=== PATIENT | female | born 1935 | race Caucasian/White ===

== ENCOUNTER 2017-12-09 17:50 | Outpatient (CLI) | payer MEDICARE ==
[2017-12-09 22:12] LABS: Bacteria/HPF 4+ HPF (None Seen); Bilirubin Negative (Negative); Blood, Urine Trace (Negative); Clarity Cloudy (Clear); Glucose, Urine (Dipstick) Negative (Negative); Leukocyte Moderate (Negative); Nitrite Negative (Negative); Protein, Urine (Dipstick) 100 mg/dL (Neg-Trace)
== END 2017-12-09 17:51 | disposition home or self-care (01) ==
LOC: MADLAB 17:50
PROVIDERS: ATTEND Family Medicine
DX: R53.1 Weakness (principal)
CPT/HCPCS: 81001; 87086

== ENCOUNTER 2018-01-19 13:24 | Emergency (ER) | payer MEDICARE, OTHER ==
[~2018-01-19 13:24] MED LIST: Sodium Chloride 0.9% 100 ML BAG ONE
[2018-01-19 14:09] LABS: Bilirubin Negative (Negative); Blood, Urine Trace (Negative); Clarity Slightly Cloudy (Clear); Glucose, Urine (Dipstick) Negative (Negative); Leukocyte Small (Negative); Nitrite Negative (Negative); Protein, Urine (Dipstick) 30 mg/dL (Neg-Trace); Specific Gravity, Urine 1.015 (1.005-1.030); pH, Urine 8.5 (5.0-9.0)
[2018-01-19 14:20] LABS: RBC/HPF 0-3 HPF (0-3)
[2018-01-19 14:21] LABS: Bacteria/HPF 4+ HPF (None Seen)
--- NOTE | 2018-01-19 14:43 | RAD ---
PORTABLE CHEST: Date: 01/19/18 PROVIDED CLINICAL HISTORY: Altered mental status. FINDINGS: No comparisons. Evaluation is limited by patient body habitus. Cardiac silhouette is prominent, likely at least parti ally on the basis of portable technique. There is density at the right upper lung zone medially that may reflect mediastinal mass or ectatic vasculature. The lungs appear clear. There is no pleural flui d or pneumothorax apparent. IMPRESSION: Abnormal appearance to the upper mediastinum right of midline which may reflect ectatic vasculature o r mass. Correlation with PA and lateral views of the chest recommended. POS: OFF
--- NOTE | 2018-01-19 14:50 | CT ---
CT BRAIN WITHOUT CONTRAST: HISTORY: Altered mental status. FINDINGS: The exam is compromised by motion artifact. There are changes of cortical atrophy and chronic small-vessel ischemic disease. No definite evidenc e of acute infarct, hemorrhage, midline shift, or abnormal extraaxial fluid collection seen. The syeda tricular size is appropriate and the basilar cisterns patent. The bony calvarium is intact. There i s mucosal disease in the paranasal sinuses. IMPRESSION: No definite CT evidence of acute intracranial process. POS: EPIH
[2018-01-19 14:53] LABS: Band 3 % (5-11); Eosinophils 3 % (0-10); Hemoglobin 10.8 g/dL (12.0-16.0); Large Platelets SLIGHT; Lymphocytes 30 % (21-51); MDiff Complete? YES; Mean Corpuscular HGB CONC 33.1 g/dL (32.0-36.0); Mean Corpuscular Hemoglobin 29.8 pg (27.0-31.0); Mean Corpuscular Volume 89.8 fl (81.0-99.0); Mean Platelet Volume 9.2 fL (7.4-10.4); Monocytes 6 % (0-10); Neutrophil 58 % (42-75); PLT Morphology Comment Appears Decreased; Platelet Count 121 thou/uL (130-400); RBC Distribution Width 13.1 % (11.5-14.5); Red Blood Cell (RBC) Count 3.64 mill/uL (4.20-5.40); White Blood Cell (WBC) Count 6.7 thou/uL (4.8-10.8)
[2018-01-19 14:59] LABS: ALT (SGPT) 10 U/L (8-55); AST (SGOT) 14 U/L (5-34); Albumin 3.7 g/dL (3.4-4.8); Alkaline Phosphatase 97 U/L (40-150); Anion Gap 16 mmol/L (10-20); BUN (Urea Nitrogen) 32 mg/dL (9.8-20.1); Bilirubin, Total 0.4 mg/dL (0.2-1.2); CK (CPK) 41 U/L (29-168); Calc. Creatinine Clearance 0 mL/min (70-130); Calcium 9.3 mg/dL (7.8-10.44); Carbon Dioxide 24 mmol/L (23-31); Chloride 103 mmol/L (98-107); Estimated GFR-MDRD 65; Globulin 3.6 g/dL (2.4-3.5); Glucose 105 mg/dL (83-110); Potassium 4.1 mmol/L (3.5-5.1); Protein, Total 7.3 g/dL (6.0-8.3); Sodium 139 mmol/L (136-145)
[2018-01-19 15:01] LABS: CKMB 1.1 ng/mL (0-6.6); Troponin I Less than 0.010 ng/mL (< 0.028)
[2018-01-19] MEDS ORDERED: cefTRIAXone\\ROCEPHIN 2 GM VIAL ONE (15:04)
[2018-01-19] MEDS ORDERED: ceFOXitin 1 GM VIAL ONE (15:11)
[2018-01-19] MEDS ORDERED: cefTRIAXone\\ROCEPHIN 1 GM VIAL ONE (15:13)
--- NOTE | 2018-01-19 16:29 | CT ---
CT OF THE THORAX WITH IV CONTRAST: 01/19/18 INDICATION: History of abnormal chest radiograph. COMPARISON: Chest radiograph dated 01/19/18. FINDINGS: There is mild cardiomegaly. There are prominent mitral annular calcifications. There are coronary art nathlay and thoracic aortic calcifications present. No pathologically enlarged lymph nodes are evident. No focal consolidation or pleural effusion is not ed. No suspicious pulmonary nodules identified. There is a moderate sided hiatal hernia. Gallbladder is surgically absent. Small cyst seen within the spleen. There is bilateral renal cortical thinning. There is scattered degenerative and osteoarthritic change. No definite acute osseous abnormality is e vident. IMPRESSION: 1. No acute cardiopulmonary abnormality. 2. Mild cardiomegaly without evidence of cardiac decompensation. 3. Moderate sized hiatal hernia. 4. Other chronic findings as above. POS: BABAK
== END 2018-01-19 18:30 | disposition home or self-care (01) ==
LOC: MADERS 13:24
DX: N39.0 Urinary tract infection, site not specified (principal); R41.82 Altered mental status, unspecified; F32.9 Major depressive disorder, single episode, unspecified; I10 Essential (primary) hypertension; E11.9 Type 2 diabetes mellitus without complications; G30.9 Alzheimer's disease, unspecified; F02.80 Dementia in other diseases classified elsewhere, unspecified severity, without behavioral disturbance, psychotic disturbance, mood disturbance, and anxiety; Z79.899 Other long term (current) drug therapy
CPT/HCPCS: 36415; 51701; 70450; 71045; 71260; 80053; 81003; 81015; 82550; 82553; 84484; 85025; 87077; 87086; 87186; 93005; 94760; 96374; A4353; J0694; J0696; J7050

== ENCOUNTER 2019-12-01 10:53 | Inpatient (IN) | payer MEDICARE, MEDICAID ==
[~2019-12-01 10:53] MED LIST changes: +Sodium Chloride 0.9% 1,000 ML BAG ONE; -Sodium Chloride 0.9% 100 ML BAG ONE
--- NOTE | 2019-12-01 11:46 | RAD ---
PORTABLE CHEST: HISTORY: Syncope. COMPARISON: 01/19/2018 study. FINDINGS: Heart size is borderline. Aorta is tortuous. The lungs are clear of infiltrates. Marked arthritic changes of both shoulders with changes compatible with chronic rotator cuff tears. IMPRESSION: No acute changes. POS: VIRA
[2019-12-01 12:01] LABS: Hemoglobin 10.6 g/dL (12.0-16.0); Large Platelets SLIGHT; Lymphocytes 12 % (21-51); MDiff Complete? YES; Macrocytosis SLIGHT = 6-15 cells (100X) (0-5/hpf); Mean Corpuscular HGB CONC 30.5 g/dL (32.0-36.0); Mean Corpuscular Hemoglobin 30.5 pg (27.0-31.0); Mean Platelet Volume 12.1 fL (7.4-10.4); Metamyelocyte 1 % (0-0); Monocytes 2 % (0-10); Neutrophil 68 % (42-75); Platelet Count 61 thou/uL (130-400); Platelet Morphology Comment Appears Decreased; RBC Distribution Width 12.5 % (11.5-14.5); Reactive Lymphocytes 17 % (0-10); Red Blood Cell (RBC) Count 3.46 mill/uL (4.20-5.40); White Blood Cell (WBC) Count 5.8 thou/uL (4.8-10.8)
[2019-12-01 12:06] LABS: ALT (SGPT) 14 U/L (8-55); AST (SGOT) 15 U/L (5-34); Alkaline Phosphatase 57 U/L (40-110); Anion Gap 13 mmol/L (10-20); BUN (Urea Nitrogen) 53 mg/dL (9.8-20.1); Bilirubin, Total 0.2 mg/dL (0.2-1.2); CK (CPK) 49 U/L (29-168); Calc. Creatinine Clearance 0 mL/min (70-130); Calcium 7.8 mg/dL (7.8-10.44); Carbon Dioxide 18 mmol/L (23-31); Chloride 135 mmol/L (98-107); Estimated GFR-MDRD 40; Globulin 3.1 g/dL (2.4-3.5); Glucose 227 mg/dL (83-110); Potassium 3.1 mmol/L (3.5-5.1); Protein, Total 6.1 g/dL (6.0-8.3); Sodium 163 mmol/L (136-145)
[2019-12-01 12:11] LABS: Bilirubin Negative (Negative); Blood, Urine Negative (Negative); Glucose, Urine (Dipstick) Negative (Negative); Leukocyte Negative (Negative); Nitrite Negative (Negative); Protein, Urine (Dipstick) 30 mg/dL (Neg-Trace); Urobilinogen 0.2 mg/dL (Less than 2)
[2019-12-01 12:12] LABS: Clarity Hazy (Clear)
[2019-12-01 12:20] LABS: Bacteria/HPF Rare-Few HPF (None Seen); RBC/HPF 0-3 HPF (0-3); WBC/HPF None Seen HPF (0-3)
--- NOTE | 2019-12-01 13:38 | CT ---
CT Brain WO Con: 12/01/2019 12:44 PM CLINICAL HISTORY: Altered mental status. IMAGING TECHNIQUE: Multiple CT images were obtained of the brain without IV contrast. COMPARISON: January 19, [address] the brain FINDINGS: Brain: There is moderate to severe chronic small vessel white matter ischemic change with generalize d cerebral and cerebellar atrophy. There is been interval development of a remote lacunar infarct involving the left globus pallidus. Small lacunar infarct involving the left cerebellum appears simil ar appearing. No acute infarct, hemorrhage or hydrocephalus is present. Ventricles: Normal. No hydrocephalus. Skull: Intact. Visualized Paranasal sinuses: Clear. Mastoid air cells:Clear. Extracranial soft tissues:Normal. 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 Moderate to severe chronic small vessel white matter ischemic change with generalized cerebral atrophy. No definite acute infarct, hemorrhage or hydrocephalus is present.
[2019-12-01 14:19] LABS: Anion Gap 13 mmol/L (10-20); BUN (Urea Nitrogen) 52 mg/dL (9.8-20.1); Calc. Creatinine Clearance 0 mL/min (70-130); Calcium 7.8 mg/dL (7.8-10.44); Carbon Dioxide 20 mmol/L (23-31); Chloride 135 mmol/L (98-107); Estimated GFR-MDRD 42; Glucose 158 mg/dL (83-110); Potassium 3.4 mmol/L (3.5-5.1); Sodium 165 mmol/L (136-145)
[2019-12-01] MEDS ORDERED: Acetaminophen 325 MG TAB PO PRN (15:24)
[2019-12-01] MEDS ORDERED: Ondansetron ODT 4 MG TAB PO PRN (15:24)
[2019-12-01] MEDS ORDERED: Ondansetron PF 4 MG/2 ML Vial SLOW IVP PRN (15:24)
[2019-12-01] MEDS: Dextrose 5% in Water 1,000 ML IV SCH ×2 (15:34→20:07)
[2019-12-01] MEDS: Sodium Chloride 0.9% 1,000 ML IV SCH ×2 (15:48→15:55)
[2019-12-01 16:08] VITALS: BMI 29.9
[2019-12-01] MEDS: cefTRIAXone\\ROCEPHIN 2 GM in Sodium Chloride 0.9% 100 ML IVPB SCH (16:45)
[2019-12-01] MEDS ORDERED: Acetaminophen 500 MG TAB PO PRN (17:03)
[2019-12-01] MEDS ORDERED: Famotidine In NaCl 20 mg/50 ml Premix Bag ONE (20:49)
[2019-12-01] MEDS ORDERED: Famotidine/PF 20 mg/2ml Vial SLOW IVP SCH (21:00)
[2019-12-02] MEDS: Acetaminophen 650 MG Suppository PR PRN ×3 (00:19→22:42)
[2019-12-02] MEDS: Dextrose 5% in Water 1,000 ML IV SCH ×2 (02:53→10:42)
[2019-12-02 05:56] LABS: ALT (SGPT) 14 U/L (8-55); AST (SGOT) 15 U/L (5-34); Albumin 2.7 g/dL (3.4-4.8); Alkaline Phosphatase 55 U/L (40-110); Anion Gap 13 mmol/L (10-20); BUN (Urea Nitrogen) 42 mg/dL (9.8-20.1); Band 14 % (5-11); Bilirubin, Total 0.3 mg/dL (0.2-1.2); Calc. Creatinine Clearance 43 mL/min (70-130); Calcium 7.3 mg/dL (7.8-10.44); Carbon Dioxide 17 mmol/L (23-31); Chloride 124 mmol/L (98-107); Eosinophils 1 % (0-10); Estimated GFR-MDRD 50; Glucose 169 mg/dL (83-110); Lymphocytes 32 % (21-51); MDiff Complete? YES; Mean Corpuscular HGB CONC 31.3 g/dL (32.0-36.0); Mean Corpuscular Volume 98.9 fL (78.0-98.0); Monocytes 8 % (0-10); Neutrophil 45 % (42-75); Platelet Count 40 thou/uL (130-400); Protein, Total 5.7 g/dL (6.0-8.3); RBC Distribution Width 12.4 % (11.5-14.5); Red Blood Cell (RBC) Count 3.23 mill/uL (4.20-5.40); Sodium 151 mmol/L (136-145); White Blood Cell (WBC) Count 5.5 thou/uL (4.8-10.8)
[2019-12-02 06:00] LABS: Potassium 2.9 mmol/L (3.5-5.1)
--- NOTE | 2019-12-02 06:02 | HP ---
PRIMARY CARE PHYSICIAN: Galdino Matthews MD CHIEF COMPLAINT: Altered mental status and lethargy. HISTORY OF PRESENT ILLNESS: Ms. Tena Ervin is an 84-year-old female, who resides long-term at [facility]. The patient had some lethargy and urinary tract symptoms 5 days ago and she was diagnosed with UTI and started on Cipro 500 mg b.i.d. for 3 days. Per nurse, the patient progressively worsened. She has not had anything to eat or drink in the past 2 days and only responsive to painful stimuli. Due to the decline in status, the patient was sent to the emergency room for further evaluation. Upon evaluation in the ER, the patient was noted to be very lethargic, weak, only responsive to painful stimuli as stated earlier. Her vital signs were stable. The patient had a hemoglobin of 10.6, hematocrit of 34.7, WBC of 5.8, platelets low at 61. Sodium was noted to be very elevated at 163, potassium 3.1, chloride 135, BUN 53, creatinine 1.27, and glucose 227. The patient had a chest x-ray done, which showed no acute cardiopulmonary changes. The patient had a CAT scan of the brain, which was also normal and showed no acute infarct, hemorrhage or hydrocephalus. The patient was given IV fluid NS by EMS and continued this due to hypovolemia and this was changed to D5W at 250 mL/hour. The patient was subsequently admitted to [facility] for urinary tract infection, dehydration, hypernatremia and hypokalemia. Upon evaluation of the patient, she was only responsive to painful stimuli. She was lying in bed, moaning. Her vital signs were stable and she was nonresponsive to any verbal cues. PAST MEDICAL HISTORY: Alzheimer dementia, CAD, constipation, depression, hearing impairment, hypertension, insomnia, overactive bladder, and physical debility. PAST SURGICAL HISTORY: Cholecystectomy and right hip repair. FAMILY HISTORY: The patient has a son who is alive. SOCIAL HISTORY: The patient lives in [facility], long-term. Per record, no tobacco use; no alcohol use; no illicit drug use. The patient is a DNR. ALLERGIES: NO KNOWN DRUG ALLERGIES. REVIEW OF SYSTEMS: Unable to obtain full review of systems, otherwise as mentioned in H and P, due to the patient's dementia and current unresponsive, lethargic state. PHYSICAL EXAMINATION: VITAL SIGNS: Temperature 98.3, pulse 80, respirations 18, O2 saturation 97% on room air, blood pressure 130/61. GENERAL: The patient is lying in bed, moaning. She is only responsive to painful stimuli. HEENT: Head; normocephalic, atraumatic. Eyes; extraocular muscles not intact. The patient is not moving the eyes. Conjunctivae normal. Sclerae normal. ENT; pharynx normal. Teeth, edentulous. NECK: Supple. No JVD. RESPIRATORY: Clear to auscultation bilaterally. CARDIOVASCULAR: S1 and S2. No murmurs. ABDOMEN: Positive bowel sounds. Nontender and nondistended. No peritoneal signs. EXTREMITIES: Unable to test strength or sensation, except withdraws to pain. NEUROLOGIC: The patient is currently unresponsive other than to painful stimuli. Memory abnormal. SKIN: Increased turgor. MEDICATIONS: 1. Cipro 500 b.i.d. 2. Plavix 75 daily. 3. Colace 100 daily. 4. Furosemide 10 daily. 5. Metoprolol 25 b.i.d. 6. MiraLAX p.r.n. 7. Myrbetriq 25 daily. 8. Montelukast 10 at bedtime. 9. Omeprazole 20 daily. 10. Seroquel 12.5 daily. 11. Zoloft 50 daily. 12. Simvastatin 40 daily. 13. Vitamin B12 of 2000 daily. 14. Vitamin D3 of 2000 daily. 15. Tylenol 500 q.6 p.r.n. pain. ASSESSMENT: 1. Altered mental status. 2. Urinary tract infection. 3. Hypernatremia. 4. Hypokalemia. 5. Dehydration. 6. Advanced dementia. 7. Generalized weakness. PLAN: The patient is an 84-year-old female, who was admitted from [facility] due to urinary tract infection, dehydration, worsening lethargy, and change in mental status. We will continue the patient on IV Rocephin 2 g daily. We will await urine cultures. We will hold all patient's oral medications as she is currently only responsive to painful stimuli. We will continue the patient on D5 with water at 250 mL/hour and change to [address] the patient on Zofran IV p.r.n. We will monitor electrolytes closely and adjust as needed. We will monitor the patient for worsening of her symptoms or any progression. We will notify family and keep them up to date on patient's status. CODE STATUS: The patient is a DNR. DISPOSITION: Long-term disposition is hopefully back to the alf in a better state. Job ID: [id number] MTDD
[2019-12-02] MEDS: Potassium Chloride 20 MEQ in Premix Bag 1 BAG IVPB SCH ×3 (06:49→12:19)
[2019-12-02] MEDS: Enoxaparin Sodium 40 MG/0.4 ML SYRINGE SC SCH (08:20)
[2019-12-02] MEDS: cefTRIAXone\\ROCEPHIN 2 GM in Sodium Chloride 0.9% 100 ML IVPB SCH (16:34)
[2019-12-03] MEDS: Acetaminophen 650 MG Suppository PR PRN ×2 (04:25→23:37)
[2019-12-03 05:40] LABS: Hemoglobin 10.4 g/dL (12.0-16.0); Mean Corpuscular HGB CONC 31.7 g/dL (32.0-36.0); Mean Corpuscular Hemoglobin 30.9 pg (27.0-31.0); Mean Corpuscular Volume 97.4 fL (78.0-98.0); Mean Platelet Volume 10.3 fL (7.4-10.4); Platelet Count 49 thou/uL (130-400); RBC Distribution Width 11.9 % (11.5-14.5); Red Blood Cell (RBC) Count 3.37 mill/uL (4.20-5.40); White Blood Cell (WBC) Count 5.4 thou/uL (4.8-10.8)
[2019-12-03 05:42] LABS: #Eosinphils 0.1 thou/uL (0.0-0.7); #Lymphocytes 1.4 thou/uL (1.20-3.40); #Monocytes 0.4 thou/uL (0.11-0.59); #Neutrophils 3.5 thou/uL (1.40-6.50); %Basophils 0.8 % (0.0-1.0); %Eosinophils 1.3 % (0.0-10.0); %Lymphocytes 25.5 % (21.0-51.0); %Monocytes 8.1 % (0.0-10.0); %Neutrophils 64.4 % (42.0-75.0)
[2019-12-03 06:03] LABS: Anion Gap 15 mmol/L (10-20); BUN (Urea Nitrogen) 28 mg/dL (9.8-20.1); Calc. Creatinine Clearance 48 mL/min (70-130); Calcium 7.4 mg/dL (7.8-10.44); Carbon Dioxide 16 mmol/L (23-31); Chloride 119 mmol/L (98-107); Estimated GFR-MDRD 58; Glucose 151 mg/dL (83-110); Potassium 3.5 mmol/L (3.5-5.1); Sodium 146 mmol/L (136-145)
[2019-12-03] MEDS: Enoxaparin Sodium 40 MG/0.4 ML SYRINGE SC SCH (08:28)
[2019-12-03] MEDS ORDERED: cefTRIAXone\\ROCEPHIN 2 GM VIAL IM SCH (16:00)
[2019-12-03] MEDS ORDERED: Lidocaine 1% 20 ML MDV ONE (16:17)
[2019-12-03] MEDS ORDERED: KEPPRA 500 MG PO SCH (21:00)
[2019-12-04 04:33] VITALS: BP 129/59
[2019-12-04 06:38] VITALS: TEMP 98.2
[2019-12-04] MEDS: Enoxaparin Sodium 40 MG/0.4 ML SYRINGE SC SCH (08:00)
[2019-12-04 10:12] LABS: Mean Corpuscular HGB CONC 31.3 g/dL (32.0-36.0); Mean Corpuscular Hemoglobin 30.7 pg (27.0-31.0); Mean Corpuscular Volume 97.9 fL (78.0-98.0); Platelet Count 43 thou/uL (130-400); RBC Distribution Width 12.1 % (11.5-14.5); Red Blood Cell (RBC) Count 3.28 mill/uL (4.20-5.40); White Blood Cell (WBC) Count 4.3 thou/uL (4.8-10.8)
[2019-12-04 10:21] LABS: Anion Gap 16 mmol/L (10-20); BUN (Urea Nitrogen) 23 mg/dL (9.8-20.1); Calc. Creatinine Clearance 54 mL/min (70-130); Calcium 7.8 mg/dL (7.8-10.44); Carbon Dioxide 13 mmol/L (23-31); Chloride 122 mmol/L (98-107); Estimated GFR-MDRD 64; Glucose 156 mg/dL (83-110); Potassium 3.9 mmol/L (3.5-5.1); Sodium 147 mmol/L (136-145)
[2019-12-04 10:41] LABS: Band 2 % (5-11); Lymphocytes 27 % (21-51); MDiff Complete? YES; Manual Diff?? YES; Neutrophil 66 % (42-75)
[2019-12-04 10:42] LABS: Anisocytosis SLIGHT = 6-15 cells (100X) (0-5/hpf); Monocytes 5 % (0-10); Platelet Morphology Comment Appears Decreased
--- NOTE | 2019-12-09 03:59 | PQF ---
Tena Ervin MANAV MENDEZ [id number] CLINICAL DOCUMENTATION CLARIFICATION FORM: POST DISCHARGE Addendum to original discharge summary date: ____ Late entry note date: __ DATE: 12/08/2019 ATTN: MANAV MENDEZ Please exercise your independent, professional judgment in responding to the clarification form. Clinical indicators are provided on the bottom of this form for your review Please check appropriate box(s): [x ] Encephalopathy: Type: [ x ] Acute [ ] Subacute [ ] Chronic Etiology: [ ] Hypertensive [ ] Metabolic [ ] Toxic [ ] Hepatic with Coma [ ] Hepatic w/o Coma [ ] Hypoxic [ ] Septic [ ] Drug induced: [ ] Unspecified [ ] in the setting of underlying dementia [ ] Other (please specify) [ ] Transient Alteration of Awareness [ ] Other diagnosis [ ] Unable to determine For continuity of documentation, please document condition throughout progress notes and discharge summary. Thank You. CLINICAL INDICATORS - SIGNS / SYMPTOMS / LABS - Altered mental status- H&P, 12/01, MANAV MENDEZ - Dehydration- H&P, 12/01, MANAV MENDEZ - Advanced dementia- H&P, 12/01, MANAV MENDEZ - UTI, dehydration, worsening lethargy and change in mental status-H&P, 12/01, MANAV MENDEZ RISK FACTORS - UTI- H&P, 12/01, MANAV MENDEZ - Hypokalemia- H&P, 12/01, MANAV MENDEZ TREATMENTS: -Sodium chloride.IV-11/30 -Ashley.IV- 11/30 (This form is maintained as a part of the permanent medical record) 2014 [employer]. All Rights Reserved [email or web address]
== END 2019-12-04 11:05 | disposition swing bed (61) | DRG 689 ==
LOC: MADERS 10:53 → MADMS 14:01
PROVIDERS: ADMIT Family Medicine; ATTEND Family Medicine
DX: N39.0 Urinary tract infection, site not specified (principal); R40.2342 Coma scale, best motor response, flexion withdrawal, at arrival to emergency department; R40.2212 Coma scale, best verbal response, none, at arrival to emergency department; E87.0 Hyperosmolality and hypernatremia; G93.40 Encephalopathy, unspecified; Z66 Do not resuscitate; R73.9 Hyperglycemia, unspecified; E86.1 Hypovolemia; E87.6 Hypokalemia; E86.0 Dehydration; I25.10 Atherosclerotic heart disease of native coronary artery without angina pectoris; K59.00 Constipation, unspecified; F32.9 Major depressive disorder, single episode, unspecified; H91.90 Unspecified hearing loss, unspecified ear; G47.00 Insomnia, unspecified; N32.81 Overactive bladder; R40.2142 Coma scale, eyes open, spontaneous, at arrival to emergency department; G30.9 Alzheimer's disease, unspecified; F02.80 Dementia in other diseases classified elsewhere, unspecified severity, without behavioral disturbance, psychotic disturbance, mood disturbance, and anxiety; Z90.49 Acquired absence of other specified parts of digestive tract; Z87.440 Personal history of urinary (tract) infections
CPT/HCPCS: 36415; 36416; 51701; 70450; 71045; 80048; 80053; 81003; 81015; 82550; 84443; 85025; 87086; 94760; 96360; 96361; A4353; J0696; J1650; J2001; J2405; J3480; J3490; J7050; J7070; Q0162

== ENCOUNTER 2019-12-04 10:16 | Inpatient (IN) | payer MEDICARE, OTHER ==
[2019-12-04 11:21] VITALS: BMI 30.7
[2019-12-04] MEDS ORDERED: Acetaminophen 325 MG Suppository PR PRN (13:09)
[2019-12-04] MEDS ORDERED: Ondansetron ODT 4 MG TAB PO PRN (13:09)
[2019-12-04] MEDS ORDERED: Lidocaine 1% 20 ML MDV FS SCH (16:00)
[2019-12-04] MEDS ORDERED: cefTRIAXone\\ROCEPHIN 2 GM VIAL IM SCH (16:00)
[2019-12-04] MEDS: Acetaminophen 650 MG Suppository PR PRN (21:05)
[2019-12-05 05:35] LABS: Mean Corpuscular HGB CONC 32.4 g/dL (32.0-36.0); Mean Corpuscular Volume 95.8 fL (78.0-98.0); Mean Platelet Volume 14.1 fL (7.4-10.4); Platelet Count 50 thou/uL (130-400); RBC Distribution Width 12.2 % (11.5-14.5); Red Blood Cell (RBC) Count 3.24 mill/uL (4.20-5.40)
[2019-12-05 05:36] LABS: %Neutrophils 45.8 % (42.0-75.0)
[2019-12-05 05:37] LABS: #Eosinphils 0.1 thou/uL (0.0-0.7); #Lymphocytes 2.2 thou/uL (1.20-3.40); #Monocytes 0.4 thou/uL (0.11-0.59); #Neutrophils 2.3 thou/uL (1.40-6.50); %Basophils 0.9 % (0.0-1.0); %Eosinophils 1.2 % (0.0-10.0); %Lymphocytes 44.8 % (21.0-51.0); %Monocytes 7.4 % (0.0-10.0)
[2019-12-05 05:45] LABS: Anion Gap 12 mmol/L (10-20); BUN (Urea Nitrogen) 19 mg/dL (9.8-20.1); Calc. Creatinine Clearance 58 mL/min (70-130); Calcium 8.1 mg/dL (7.8-10.44); Chloride 120 mmol/L (98-107); Estimated GFR-MDRD 70; Glucose 110 mg/dL (83-110); Potassium 3.6 mmol/L (3.5-5.1); Sodium 148 mmol/L (136-145)
[2019-12-05 05:55] LABS: Carbon Dioxide 20 mmol/L (23-31)
[2019-12-05] MEDS: Nystatin Ointment 15 GM TUBE TOP SCH (20:45)
[2019-12-06] MEDS: Acetaminophen 650 MG Suppository PR PRN (06:03)
[2019-12-06] MEDS: Nystatin Ointment 15 GM TUBE TOP SCH ×2 (09:31→21:07)
[2019-12-07 05:53] LABS: Band 5 % (5-11); Hemoglobin 10.3 g/dL (12.0-16.0); Lymphocytes 42 % (21-51); MDiff Complete? YES; Mean Corpuscular HGB CONC 31.8 g/dL (32.0-36.0); Mean Corpuscular Hemoglobin 30.7 pg (27.0-31.0); Mean Corpuscular Volume 96.7 fL (78.0-98.0); Mean Platelet Volume 11.3 fL (7.4-10.4); Monocytes 3 % (0-10); Neutrophil 50 % (42-75); Platelet Count 84 thou/uL (130-400); Platelet Morphology Comment Appears Decreased; RBC Distribution Width 12.2 % (11.5-14.5); RBC Morphology Normal; Red Blood Cell (RBC) Count 3.35 mill/uL (4.20-5.40); White Blood Cell (WBC) Count 6.3 thou/uL (4.8-10.8)
[2019-12-07 05:55] LABS: Anion Gap 13 mmol/L (10-20); BUN (Urea Nitrogen) 16 mg/dL (9.8-20.1); Calc. Creatinine Clearance 58 mL/min (70-130); Calcium 8.5 mg/dL (7.8-10.44); Carbon Dioxide 20 mmol/L (23-31); Chloride 115 mmol/L (98-107); Estimated GFR-MDRD 70; Glucose 132 mg/dL (83-110); Sodium 144 mmol/L (136-145)
[2019-12-07] MEDS: Nystatin Ointment 15 GM TUBE TOP SCH ×2 (08:09→20:15)
[2019-12-07] MEDS: Acetaminophen 650 MG Suppository PR PRN (11:25)
[2019-12-08] MEDS: Acetaminophen 650 MG Suppository PR PRN ×2 (06:56→11:06)
[2019-12-08] MEDS: Nystatin Ointment 15 GM TUBE TOP SCH ×2 (08:54→20:29)
[2019-12-08] MEDS: Nystatin 500,000 UNITS/5 ML UDCUP SSW SCH ×2 (19:00→20:27)
[2019-12-09] MEDS: Acetaminophen 650 MG Suppository PR PRN ×2 (01:23→08:56)
[2019-12-09] MEDS: Nystatin Ointment 15 GM TUBE TOP SCH ×2 (08:52→20:18)
[2019-12-09] MEDS: Nystatin 500,000 UNITS/5 ML UDCUP SSW SCH ×4 (08:52→20:21)
--- NOTE | 2019-12-09 18:07 | RAD ---
LEFT HIP TWO VIEWS: History: Hip pain. Comparison: None. FINDINGS: Long stem left femoral arthroplasty. No acute fracture or malalignment. Moderate vascular calcificati ons. Ectopic ossification. Old fracture of the greater trochanter and lesser trochanter. IMPRESSION: Intact long stem left hip arthroplasty. POS: HOME
[2019-12-10] MEDS: Nystatin 500,000 UNITS/5 ML UDCUP SSW SCH ×4 (08:00→20:49)
[2019-12-10] MEDS: Nystatin Ointment 15 GM TUBE TOP SCH ×2 (08:00→21:00)
[2019-12-11] MEDS: Nystatin Ointment 15 GM TUBE TOP SCH ×2 (08:25→20:19)
[2019-12-11] MEDS: Nystatin 500,000 UNITS/5 ML UDCUP SSW SCH ×4 (08:25→20:17)
[2019-12-12] MEDS: Nystatin 500,000 UNITS/5 ML UDCUP SSW SCH ×4 (09:05→20:45)
[2019-12-12] MEDS: Nystatin Ointment 15 GM TUBE TOP SCH ×2 (09:05→20:45)
[2019-12-12] MEDS: Acetaminophen 650 MG Suppository PR PRN (20:45)
[2019-12-13] MEDS: Acetaminophen 650 MG Suppository PR PRN (01:25)
[2019-12-13] MEDS: Nystatin 500,000 UNITS/5 ML UDCUP SSW SCH ×2 (09:39→14:53)
[2019-12-13] MEDS: Nystatin Ointment 15 GM TUBE TOP SCH (09:39)
[2019-12-13 10:05] VITALS: BP 118/64; TEMP 97.5
[2019-12-13] MEDS ORDERED: Morphine 10 MG/0.5 ML ORAL SYRINGE SL PRN (11:12)
--- NOTE | 2019-12-13 21:35 | DIS ---
DATE OF ADMISSION: 12/04/2019 DATE OF DISCHARGE: 12/13/2019 ADMITTING, DISCHARGING, AND PRIMARY CARE PHYSICIAN: Galdino Matthews MD. DISCHARGE DISPOSITION: With [facility] back to [facility]. DISCHARGE DIAGNOSES: 1. Palliative care with comfort measures. 2. Advanced dementia. 3. Physical debility. 4. Acute encephalopathy. 5. Hypernatremia, resolved. 6. Hypokalemia, resolved. 7. Urinary tract infection, completed antibiotics and resolved. BRIEF HOSPITAL COURSE: Ms. Tena Ervin is an 84-year-old female, who was admitted to [facility] in [place] on the November due to urinary tract infection, dehydration, hypernatremia, and hypokalemia. The patient was started on IV antibiotics and IV fluids and electrolytes progressively resolved. Patient's urine culture showed no growth on the final one, and antibiotic was discontinued. Sodium progressively improved and potassium also improved. The patient slowly progressed and was able to open eyes and was more awake, but she was nonverbal throughout hospitalization. The patient was seen by Speech Therapy and diet was changed to pureed with thickening of the fluids and the patient was able to get off IV fluids and take p.o. nutrition with assistance. The patient progressed slowly, became stable. She was nonverbal and she mostly just moaned and groaned in pain, but throughout hospitalization when asked if uncomfortable, shaking her head occasionally say no. The patient had an episode where she was guarding her left hip and an x-ray was done which was normal. The patient's prognosis was poor as she does have advanced dementia and this new onset altered mental status was not progressing, so the decision was made to place the patient on palliative care and comfort measures. Son was notified and he had agreed to this. Patient was subsequently discharged back to skilled nursing with [facility] to continue comfort and palliative care measures. DISCHARGE MEDICATIONS: Roxanol solution sublingual p.r.n. pain; Tylenol 650 per rectum p.r.n. fever, nausea; and Zofran ODT 4 mg q.6 p.r.n. nausea, vomiting. Job ID: [id number]
== END 2019-12-13 16:13 | DRG 951 ==
LOC: MADMS 11:07
PROVIDERS: ADMIT Family Medicine; ATTEND Family Medicine
DX: Z51.5 Encounter for palliative care (principal); G93.40 Encephalopathy, unspecified; E87.0 Hyperosmolality and hypernatremia; N39.0 Urinary tract infection, site not specified; F03.90 Unspecified dementia, unspecified severity, without behavioral disturbance, psychotic disturbance, mood disturbance, and anxiety; R53.81 Other malaise; E87.6 Hypokalemia; E86.0 Dehydration
CPT/HCPCS: 36415; 80048; 85025; J0696; J2001